=== PATIENT | male | born 1965 | race Caucasian/White ===

== ENCOUNTER 2019-10-07 10:13 | Inpatient (IN) ==
--- NOTE | 2019-10-01 09:00 | EKG Report ---
Test Performed on : 10/01/2019 08:38:49 AM Test Reason : pat Blood Pressure : / mmHG Vent. Rate : 086 BPM Atrial Rate : 089 BPM P-R Int : 000 ms QRS Dur : 134 ms QT Int : 360 ms P-R-T Axes : 000 043 160 degrees QTc Int : 430 ms Atrial fibrillation. with premature ventricular or aberrantly conducted complexes. Indeterminate axis Nonspecific intraventricular block Inferior infarct (cited on or before 19-FEB-2018) Cannot rule out Anterior infarct (cited on or before 19-FEB-2018) T wave abnormality, consider lateral ischemia Abnormal ECG When compared with ECG of 24-AUG-2019 12:46, (Unconfirmed) Lateral T wave abnormalities are more pronounced. Confirmed by Quan Herrera MD ([id number]) on 10/01/2019 8:15:40 PM
[2019-10-01 09:06] LABS: HEMATOCRIT 38.3 % (42.0-52.0); HEMOGLOBIN 12.3 g/dL (14.0-18.0); MCH 33.2 PG (27-31); MCHC 32.1 g/dL (33-37); MCV 103.5 FL (81-99); MPV 11.6 FL (7.4-10.4); RBC 3.7 XMIL (4.7-6.1); RDW 15.3 % (11.5-14.5); WBC 4.33 X1000 (4.8-10.8)
[2019-10-01 09:22] LABS: ESTIMATED GFR > 60
[2019-10-01 09:37] LABS: AGAP 11; BUN 35 mg/dL (8-22); CALCIUM 9.3 mg/dL (8.8-10.2); CHLORIDE 87 mmol/L (98-107); COSMO 265; CREATININE 0.9 mg/dL (0.7-1.2); GLUCOSE 95 mg/dL (70-104); POTASSIUM 4.9 mmol/L (3.5-5.1); SODIUM 128 mmol/L (136-145); TCO2 30 mmol/L (25-35)
[2019-10-07] MEDS ORDERED: LR 1,000 ML ONE (10:23)
[2019-10-07] MEDS ORDERED: VANCOMYCIN 1 GM/NS 1 GM/250 ML IVPB ONE (10:23)
[2019-10-07] MEDS ORDERED: NS 1,000 ML ONE ×2 (11:40→17:11)
[2019-10-07] MEDS ORDERED: MARCAINE 0.25% PF/EPI 1:200,000 ONE (11:40)
[2019-10-07] MEDS ORDERED: HEPARIN ONE (11:40)
[2019-10-07] MEDS ORDERED: KEFZOL ONE (11:40)
[2019-10-07] MEDS ORDERED: XYLOCAINE-MPF 2% ONE (11:45)
[2019-10-07] MEDS ORDERED: ROBINUL ONE ×2 (11:45→16:13)
[2019-10-07] MEDS ORDERED: DIPRIVAN 1% ONE (11:45)
[2019-10-07] MEDS ORDERED: ZEMURON ONE ×4 (11:45→14:17)
[2019-10-07] MEDS ORDERED: AMIDATE ONE (12:03)
[2019-10-07] MEDS ORDERED: QUELICIN (DOSE) ONE (12:03)
[2019-10-07] MEDS ORDERED: EPINEPHRINE ONE ×2 (12:41→14:48)
[2019-10-07] MEDS ORDERED: SODIUM CHLORIDE 0.9% 10 ML ONE (12:41)
[2019-10-07] MEDS ORDERED: HEPARIN (DOSE) ONE (12:59)
[2019-10-07] MEDS ORDERED: OFIRMEV 1000 MG/ISOTONIC SOLN 1,000 MG/100 ML BOTTLE ONE (13:00)
[2019-10-07] MEDS ORDERED: EPHEDRINE ONE (13:02)
[2019-10-07] MEDS ORDERED: ZOFRAN ONE (13:42)
[2019-10-07] MEDS ORDERED: BRIDION ONE (14:01)
[2019-10-07 15:17] LABS: URINE SOURCE CATH
[2019-10-07 15:25] LABS: BILIRUBIN URINE NEGATIVE (NEGATIVE); BLOOD URINE NEGATIVE (NEGATIVE); COLOR YELLOW; GLUCOSE URINE NEGATIVE (NEGATIVE); KETONE URINE NEGATIVE (NEGATIVE); LEUKOCYTES URINE NEGATIVE (NEGATIVE); NITRITE URINE NEGATIVE (NEGATIVE); PH URINE 6.5; PROTEIN URINE NEGATIVE (NEGATIVE); SP GRAVITY URINE 1.014; TURBIDITY URINE CLEAR (CLEAR); UROBILINOGEN URINE NORMAL (NORMAL)
[2019-10-07 15:26] LABS: UR EPITHELIAL CELLS <10 /HPF (<10); URINE BACTERIA NEGATIVE /HPF; URINE RBC <10 /HPF (<10); URINE WBC <10 /HPF (<10)
[2019-10-07] MEDS ORDERED: PITRESSIN ONE (15:53)
[2019-10-07] MEDS ORDERED: NEOSTIGMINE ONE (16:16)
[2019-10-07] MEDS ORDERED: BREVIBLOC ONE (16:27)
[2019-10-07] MEDS ORDERED: NEO-SYNEPHRINE 50 MG in NS 250 ML IV SCH (17:00)
[2019-10-07] MEDS: NORCO-10 ONE ×2 (17:26→18:27)
--- NOTE | 2019-10-07 17:39 | OPERATIVE NOTE ---
PROCEDURE DATE: 10/07/2019 PROCEDURE: 1. Femoral-femoral bypass. 2. Right femoral endarterectomy. 3. Right deep femoral to distal popliteal in situ vein bypass. SURGEON: Fermin Lane MD. CLOTH MERCERIZER BACK TENDER: Mynor Drew. PREOP DIAGNOSIS: 1. Severe peripheral vascular disease with rest pain in the right foot. 2. Right iliac occlusion. 3. Right superficial femoral artery occlusion. POSTOP DIAGNOSIS: 1. Severe peripheral vascular disease with rest pain in the right foot. 2. Right iliac occlusion. 3. Right superficial femoral artery occlusion. DESCRIPTION OF PROCEDURE: Satisfactory general endotracheal anesthesia was achieved. The left groin, right groin and right leg were prepped and draped in a sterile fashion. An [place] drape was used. We made a vertical incision in the right groin, dissected down to the common femoral artery surrounded with an umbilical tape. It was very calcified. The deep femoral branched quickly and was surround with a large vessel loop. The SFA was surrounded with a vessel loop as well. We did not dissect out the vein as of yet. We then turned our attention the left side, made a vertical incision there and again dissected down to the common femoral artery. We were able to incise the inguinal ligament and expose the external iliac which did have enough soft wall in order to be our origin for a femoral-femoral bypass. 7000 units of heparin were given. After it circulated for 4 minutes we then clamped off the external iliac with a DeBakey clamp. The distal vessels were also clamped off with a DeBakey clamp. I made a vertical incision. We tunneled an 8 mm Hemashield collagen-impregnated graft from one groin to the other. We cut the arteriotomy to match the size of the bypass graft. We then used a 5-0 Prolene stitch to do the proximal anastomosis or the anastomosis in the left external iliac. Upon completion, we then clamped off the graft and restored flow and used some 5-0 Prolene simple stitches to achieve complete hemostasis of this left anastomosis. We then turned our attention to the right side. It became evident that we would have to endarterectomize the vessel in order to get any outflow to the deep femoral. So we clamped off the vessels, incised the calcified common femoral with the 11 blade and extended with the Blake scissors. We then had to use a [place] to free a segment out of the common femoral, remove a significant calcified plaque all the way to the bifurcation of the common femoral. This allowed us to get back bleeding from the deep femoral and it would admit a 4 probe into the deep femoral. We tacked 1 intima with a 7-0 Prolene. We then cut the graft to match the arteriotomy and we constructed this anastomosis with a 5-0 Prolene running stitch. Upon completion, we had to add some additional stitches to achieve complete hemostasis of the femoral anastomosis. We then dissected out the vein and marked it. The takeoff was identified. We then clamped the greater saphenous vein right at the femoral vein junction and transected it. We over sewed the stump with a 5-0 Prolene stitch beginning in a horizontal mattress followed by a running stitch. We looked at the open end of the vein and excised the valves there. Unfortunately though, the vein would not reach to the common femoral so we had no choice but to use one of the deep femoral branches as the takeoff of our bypass graft. It bifurcated early as I mentioned before so the more distal arterial branch is the one we used as an inflow vessel. We then occluded flow in the deep femoral, incised it with the 11 blade and extended with the Blake scissors and then under 2 -1/2 loupe magnification we constructed the anastomosis using a 6-0 Prolene stitch. Before finishing it we did pass the dilator through the orifice to the deep femoral and good antegrade flow was present. We finished the anastomosis and a pulse was noted in the proximal vein graft. We then turned our attention to the medial calf proximally and made a longitudinal incision into the popliteal space and identified the distal popliteal, dissected it out and surrounded with vessel loops proximally and distally. We then identified the vein in the anterior subcutaneous flap. We exposed it. We marked it so we would not twist it. We then chose a vein branch and passed our [place] valvulotome up to the proximal anastomosis. We then opened it and engaged the valves and did a couple of passes until we had good pulsatile flow in the distal vein graft. We then clipped off the branch. We made an incision in the distal medial thigh, exposed the vein there and marked it so we would not twist it. We then mobilized the vein distally ligating the branches and bring it back to its normal in situ position proximal to the knee and then tunneled it through the popliteal space so it would lay [id number] with the distal popliteal. Just prior to doing that we did pass a valvulotome one more time to lyse the more distal valves and again we had excellent pulsatile flow. We then clipped off the vein graft right at its most distal end before we tunneled it into the popliteal space. We then laid it [id number]. We clamped it off with a bulldog clamp then with a vessel loop occlusion of the distal popliteal and under 2 1/2 loupe magnification we incised the artery and extended with the Blake scissors and then cut the vein graft to match the arteriotomy and constructed the anastomosis between the vein and the artery using a 6-0 Prolene running stitch. As we neared completion we passed a 2, to 2-1/2 and 3 probe in the distal popliteal. We had good back bleeding. We had good flow through the vein graft. We finished the anastomosis and flow was established. We then went back to the proximal groin incision and dissected further distally and there was a branch off the vein that we ligated. Another branch in the mid thigh was cut down on and clipped. These were all the branches that we could identify by preoperative imaging. The stump of the proximal incision we actually made a small graftotomy and passed a 3 Christiano back up through the proximal anastomosis and then passed the dilator which was 3-1/2 through the proximal anastomosis to be certain and it was adequate inflow and it was. We ligated off that branch that we had used for access to the vein graft. We irrigated out the wounds with Kefzol-impregnated saline. We closed the left groin with 2 layers of 2-0 Polysorb. The right groin incision was 1st with 3-0 Polysorb pops and then 2-0 Polysorb running. The more distal incisions were 3-0 pops in the subcutaneous tissue and the most distal incision was 3-0 pops followed by a 2-0 Polysorb running. We used local anesthesia 0.25 Marcaine with epinephrine at each incision then closed each skin incision with dustin. Sterile dressings were applied. He tolerated it well, was given 2 units of blood. Estimated blood loss was 1000 mL. He was sent to the recovery room in stable condition. cc: Fermin Lane MD
[2019-10-07 18:09] LABS: HEMATOCRIT 35.6 % (42.0-52.0); HEMOGLOBIN 11.8 g/dL (14.0-18.0)
[2019-10-07 18:27] LABS: AGAP 9; BUN 27 mg/dL (8-22); CALCIUM 8.5 mg/dL (8.8-10.2); CHLORIDE 96 mmol/L (98-107); COSMO 269; CREATININE 0.7 mg/dL (0.7-1.2); ESTIMATED GFR > 60; GLUCOSE 146 mg/dL (70-104); MAGNESIUM 1.6 mg/dL (1.5-2.7); POTASSIUM 4.5 mmol/L (3.5-5.1); SODIUM 130 mmol/L (136-145); TCO2 25 mmol/L (25-35)
[2019-10-07] MEDS: DILAUDID IV PRN ×2 (19:33→23:29)
[2019-10-07 19:40] LABS: HEMATOCRIT 36.9 % (42.0-52.0)
[2019-10-07] MEDS: COREG PO SCH (20:08)
[2019-10-07] MEDS: LASIX PO SCH (20:09)
[2019-10-07] MEDS: ENTRESTO 24 MG-26 MG TABLET PO SCH (20:09)
[2019-10-07] MEDS: NS 1,000 ML IV SCH (20:14)
[2019-10-07] MEDS: PLAVIX PO SCH (20:14)
--- NOTE | 2019-10-07 20:54 | Extremity Venous Study ---
PROCEDURE NAME: Vein Mapping Right GSV - 10/07/2019 PROCEDURE: Right greater saphenous vein mapping. REFERRING PHYSICIANS: Domingo. EQUIPMENT OR MACHINERY CLEANER: Ana King RVT. INDICATIONS: Evaluate for femoral popliteal arterial bypass graft. FINDINGS: The right great saphenous vein was compressible throughout its length. In the thigh, the vein measured 4.9 to 7.5 mm. Within the right leg, the vein measured 3.3 to 4.3 mm. The branches were marked off the vein as it was imaged. INTERPRETATION: Satisfactory right great saphenous vein for arterial bypass grafting. cc: MD Fermin Jackson MD
[2019-10-07] MEDS: NORCO-10 PO PRN (21:45)
[2019-10-07] MEDS: NEO-SYNEPHRINE 50 MG in NS 250 ML IV SCH (21:46)
[2019-10-07] MEDS: VANCOMYCIN 1 GM/NS 1 GM/250 ML IVPB IV SCH (22:34)
[2019-10-08] MEDS: NORCO-10 PO PRN ×4 (01:26→20:08)
[2019-10-08] MEDS: DILAUDID IV PRN ×6 (02:38→22:15)
[2019-10-08] MEDS: NS 1,000 ML IV SCH ×2 (04:09→14:38)
[2019-10-08] MEDS: NEO-SYNEPHRINE 50 MG in NS 250 ML IV SCH ×5 (04:09→22:02)
[2019-10-08 07:34] LABS: BASO# 0.01 X1000 (0.0-0.2); BASO% 0.1 % (0.0-0.8); EOS# 0.03 X1000 (0.0-0.7); EOS% 0.4 % (0.0-10.0); HEMATOCRIT 36.5 % (42.0-52.0); HEMOGLOBIN 11.5 g/dL (14.0-18.0); LYMPH# 1.18 X1000 (1.2-3.4); LYMPH% 13.9 % (20.5-51.1); MCH 32.8 PG (27-31); MCHC 31.5 g/dL (33-37); MONO# 0.91 X1000 (0.11-0.59); MONO% 10.7 % (1.7-9.3); NEUT# 6.34 X1000 (1.4-6.5); NEUT% 74.9 % (42.2-75.2); PLT 134 X1000 (130-400); RBC 3.51 XMIL (4.7-6.1); RDW 17.1 % (11.5-14.5); WBC 8.47 X1000 (4.8-10.8)
[2019-10-08 07:52] LABS: AGAP 7; BUN 18 mg/dL (8-22); CALCIUM 8.8 mg/dL (8.8-10.2); CHLORIDE 100 mmol/L (98-107); COSMO 270; CREATININE 0.8 mg/dL (0.7-1.2); ESTIMATED GFR > 60; GLUCOSE 101 mg/dL (70-104); POTASSIUM 5.3 mmol/L (3.5-5.1); SODIUM 134 mmol/L (136-145); TCO2 27 mmol/L (25-35)
[2019-10-08] MEDS: ENTRESTO 24 MG-26 MG TABLET PO SCH ×2 (08:19→20:09)
[2019-10-08] MEDS: PLAVIX PO SCH (08:19)
[2019-10-08] MEDS: LASIX PO SCH ×2 (08:19→20:09)
[2019-10-08] MEDS: COREG PO SCH ×2 (08:19→20:09)
[2019-10-08] MEDS: ASPIRIN PO SCH (08:19)
[2019-10-08] MEDS: LANOXIN PO SCH (08:19)
[2019-10-08] MEDS ORDERED: HEPARIN ONE ×2 (09:04→09:05)
[2019-10-08] MEDS ORDERED: KEFZOL ONE (09:04)
[2019-10-08] MEDS ORDERED: NS 0 ML ONE (09:05)
[2019-10-08] MEDS ORDERED: NS 2,000 ML ONE (09:05)
[2019-10-08] MEDS ORDERED: NORCURON ONE (09:41)
[2019-10-08] MEDS ORDERED: QUELICIN (DOSE) ONE (09:41)
[2019-10-08] MEDS ORDERED: SODIUM CHLORIDE 0.9% 10 ML ONE (09:41)
[2019-10-08] MEDS ORDERED: AMIDATE ONE (09:44)
[2019-10-08] MEDS ORDERED: FENTANYL ONE (09:45)
[2019-10-08] MEDS ORDERED: MAGNESIUM SULFATE 2 GM/S.W.I. 2 GM/50 ML IVPB IV ONE (10:14)
[2019-10-08] MEDS: VANCOMYCIN 1 GM/NS 1 GM/250 ML IVPB IV SCH ×2 (10:45→22:51)
--- NOTE | 2019-10-08 10:46 | CARDIOLOGY CONSULTATION ---
DATE: 10/08/2019 HISTORY OF PRESENT ILLNESS: Cardiology was consulted. The patient had broad complex tachycardia, eight-beat, during surgery. The patient had a fem-fem bypass, right femoral endarterectomy, and right deep femoral and distal popliteal in situ vein bypass on 10/07/2019. Today, he is going to undergo thrombectomy on the right leg as well. The patient complains of pain in his right foot. He denies any chest pain. There are no palpitations. Exercise capacity is significantly limited. There is no orthopnea or shortness of breath at the present time. REVIEW OF SYSTEM: A 14-point review of systems was done. GI System: There is no history of nausea, vomiting, or diarrhea. The patient had melenic stool about 2 to 3 weeks back. Genitourinary System: There is no dysuria or hematuria. Respiratory System: There is no history of cough, expectoration, hemoptysis. There is no history of fevers or chills. Endocrine System: Stable. PAST MEDICAL HISTORY: Coronary artery disease, status post coronary artery bypass grafting. Ventricular tachycardia. Status post AICD placement. Systolic heart failure. History of pleural effusion. COPD. Paroxysmal atrial fibrillation. Hypertension. Hyperlipidemia. Tobacco abuse. Peripheral vascular disease. Alcohol abuse. He had upper GI endoscopy and colonoscopy in 2017, which revealed diverticulosis, colonic distention. Chronic erosive gastritis was noted as well with chronic gastritis. Gastroparesis syndrome. SOCIAL HISTORY: The patient smokes. History of alcohol abuse. The patient lives locally. FAMILY HISTORY: Heart disease. PAST SURGICAL HISTORY: Quadruple bypass. Pacemaker. Back surgery. PHYSICAL EXAMINATION: Vitals: Blood pressure was 110/60. Cardiac: First and second heart sounds were heard. There was no S3 gallop. Respiratory: Normal air entry. No crepitations or rhonchi. Abdomen: Soft. Extremities: Recent surgery on the right leg groin, and was cold to touch, with decreased pulses on the foot. HEENT: Atraumatic, normocephalic. Pupils were equal and reacting to light. DIAGNOSTIC DATA: Electrocardiogram revealed atrial fibrillation, aberrancy was noted. CURRENT MEDICATIONS: Solis-Synephrine drip. Aspirin. Coreg 6.25 b.i.d. Plavix 75 mg a day. Lanoxin 0.125 mg a day. Lasix 40 mg p.o. b.i.d. Dilaudid. Entresto. Vancomycin. ASSESSMENT AND PLAN: Mr. Christian Roger is a 54-year-old, gentleman, with history of coronary artery disease, coronary artery bypass grafting, systolic heart failure, peripheral vascular disease, and history of GI bleed. He is admitted and has undergone fem-fem bypass on the right leg with right femoral endarterectomy, with right fem to distal popliteal in situ vein bypass. He is going to undergo a thrombectomy today. From a cardiac standpoint given his atrial fibrillation and peripheral vascular disease with thrombectomy, which is going to be done today, would recommend heparin post operatively. As far as anticoagulation therapy is concerned, he has had GI bleed, however, he has not seen a manager strategic partnerships recently and the last time he had a GI workup was in 2017. He does have diverticulosis with gastritis. I suspect he may have GI bleeding as well. However, the risk of not anticoagulating him is higher so we will plan for heparin and subsequently Eliquis at a lower dose. We will check CBCs on a regular basis and get GI on board if required. His magnesium was 1.6. We will correct that. An eight-beat broad complex tachycardia was noted intraoperatively, that could be aberrancy of conduction as well. Regardless, he has an AICD. We will have that interrogated as well. Systolic heart failure. He is on Entresto and Coreg. We have not made any changes to his medication. Given his cardiac and vascular disease, we will also put him on lipid-lowering agents as well. Thank you for the consult. We will follow. cc: MD Fermin Medellin MD
[2019-10-08] MEDS ORDERED: NEO-SYNEPHRINE ONE ×2 (10:50→11:24)
[2019-10-08] MEDS ORDERED: HEPARIN (DOSE) ONE (10:53)
[2019-10-08] MEDS ORDERED: VENTOLIN HFA ONE (11:49)
[2019-10-08] MEDS ORDERED: RECOTHROM ONE (12:01)
--- NOTE | 2019-10-08 12:42 | OPERATIVE NOTE ---
PROCEDURE DATE: 10/08/2019 PROCEDURE: Thrombectomy femoral femoral bypass; Thrombectomy insitu vein bypass; Revision of vein bypass with 6 mm PTFE interposition graft between femfem graft and in situ vein bypass PREOPERATIVE DIAGNOSIS: Thrombosis, femorofemoral graft and vein bypass. POSTOPERATIVE DIAGNOSIS: Thrombosis, femorofemoral graft and vein bypass. INDICATIONS: This is a 54-year-old who is a day after a femorofemoral bypass and a femoral to distal popliteal in situ vein bypass. These grafts were clotted. He was brought back to the operating room for thrombectomy and possible revision. DESCRIPTION OF PROCEDURE: Satisfactory general endotracheal anesthesia was achieved. The lower abdomen, both groins, and the right leg were prepped and draped in a sterile fashion. We removed the dustin from the groin incision, exposing the right part of the femorofemoral graft and the beginning of the vein graft. Neither had a pulse. We then exposed the left groin as well. The proximal femorofemoral graft had a pulse in it. We gave the patient 7000 units of heparin. We then made a longitudinal graftotomy on the right in the right groin on the femorofemoral Hemashield graft. We could pass a 4 Christiano distally into the profunda and extracted some clot. This Christiano, however, would not go into the vein graft. It just went down the profunda branch. I made a longitudinal incision also in the proximal vein graft and we passed a 3 Christiano distally. We opened the distal incision in the calf and exposed the distal vein graft. We noted that the 3 Christiano went through the anastomosis into the [place] artery. We extracted the clot from the vein graft until we got no further clot and there was back-bleeding. We used a small bulldog to clamp that off distally. Again, we could not traverse from the vein graft to the deep femoral into the common femoral. This seemed to be too circuitous of a route. We passed a 3 and a 3.5 dilator into the profunda with good back-bleeding but it did not go into the vein graft. I felt it obvious that we could not depend on the deep femoral as our inflow and I chose at that point to get a 6 mm PTFE graft and jump from the femorofemoral graft down to the proximal vein graft using a 6 mm PTFE. At this point, we then turned our attention to the femorofemoral graft and passed a 4 Christiano over. We identified a small kink in the femorofemoral graft on the left side due to the wound closure. Once we straightened that out, we were able to extract clot from the left side and had excellent inflow. It had resolved the clot from our vein graft. We took the clot out of the femorofemoral graft. We dilated the deep femoral so that we would have outflow there, as well as through our new interposition graft to the vein graft. We then sewed the 6 mm PTFE graft to the Hemashield graft using a CV-5 Mckee suture and then used a CV-6 Mckee suture to sew it to the vein graft. Before completing that, we back-bled the vein graft and again flushed the femorofemoral graft into the interposition graft, had good antegrade flow. No clot was seen. We finished that and flow was established. This provided a good pulse within the vein graft all the way down to the distal anastomosis. Inspecting the distal anastomosis in the distal poplitea, there was some bleeding at the tip of the anastomosis and we placed a 6-0 Prolene stitch there to achieve satisfactory hemostasis. This bled again. We used Gelfoam and topical thrombin to achieve adequate hemostasis there. This appeared to be a needle hole. The anastomoses between the femorofemoral graft and the PTFE graft, and the PTFE graft to the vein graft appeared hemostatic. We irrigated the wounds out with Kefzol-impregnated saline. We then closed the left groin in two layers of 2-0 Polysorb, the right groin with two layers of 2-0 Polysorb. The skin was closed with dustin. The distal incision was closed with interrupted 3-0 Polysorb in the fascia and then a 2- 0 Polysorb running in the subcutaneous tissue. Sterile island dressings were applied. He tolerated it well. Estimated blood loss was about 1200 mL. He was given 2 units of blood in the case. He tolerated the procedure well and was sent to the ICU in stable condition. cc: Fermin Lane MD MTDD
[2019-10-08] MEDS ORDERED: LOPRESSOR IV SCH ×2 (12:45→13:12)
--- NOTE | 2019-10-08 12:57 | Diag Imaging Result Doc PS360 ---
EXAM: CHEST-PORTABLE INDICATION: central line placement TECHNIQUE: One view COMPARISON: 08/24/2019 FINDINGS: There is a newly placed right IJ line. The tip projects over the region of the upper SVC. There is interstitial thickening bilaterally suggesting at least mild interstitial edema. There is a loculated pleural fluid collection at the left lung base that is stable and there is adjacent atelectasis and fibrosis that is similar to the previous study. There is no evidence of pneumothorax. There is stable cardiomegaly. There are stable CABG changes. There is evidence of pulmonary venous congestion. The implanted defibrillator is in stable position. IMPRESSION: 1.Interval placement of right IJ line with no evidence of pneumothorax. 2.Pulmonary venous congestion and interstitial edema. 3.Stable loculated pleural effusion at the left lung base. Electronically signed by Richard Pressley 10/08/2019 12:55 PM
[2019-10-08] MEDS ORDERED: LOPRESSOR IV PRN (13:15)
[2019-10-08 14:26] LABS: HEMATOCRIT 34.7 % (42.0-52.0)
--- NOTE | 2019-10-08 16:27 | GENERAL SURGERY PROGRESS NOTE ---
DATE: 10/08/2019 SUBJECTIVE: He is doing generally well. OBJECTIVE: His heart rate is around 60 and irregular. Blood pressure is 117/66. He is awake and alert, taking liquids. He has a palpable graft pulse. His leg is warmer. LABORATORY DATA: Postoperative hemoglobin was 11. PLAN: The plan will be to start him on Lovenox tonight for anticoagulation. Since he is extubated, we will be able to resume his antiplatelet therapy. cc: Fermin Lane MD MTDD
[2019-10-08] MEDS ORDERED: NS 500 ML IV ONE (19:30)
[2019-10-08] MEDS: D5 NS 1,000 ML IV SCH (20:08)
[2019-10-08] MEDS: LOVENOX SUBQ SCH (20:09)
[2019-10-08] MEDS: LIPITOR PO SCH (20:09)
--- NOTE | 2019-10-08 22:10 | PULMONOLOGY CONSULTATION ---
DATE: 10/08/2019 REQUESTING PHYSICIAN: Dr. Fermin Lane. REASON FOR CONSULTATION: Respiratory failure. HISTORY OF PRESENT ILLNESS: Mr. Roger is a 54-year-old with severe peripheral vascular disease, ongoing tobacco use, coronary artery disease, COPD, who has developed resting pain in the right ankle with a nonhealing ulcer. [facility] attempts at stenting in [facility] were unsuccessful. The patient underwent a femoral-femoral bypass yesterday for right iliac occlusion and a right superficial femoral artery occlusion. He also underwent a right deep femoral to distal popliteal in situ vein bypass. He returned to the operating room today for a thrombectomy of the femoral-femoral bypass and a thrombectomy of the in situ bypass. He was intubated during the procedure but was successfully extubated. He reports he is having pain. He is currently on vasopressors. He did develop ventricular tachycardia during his surgical procedure and is being followed by Cardiology. PAST MEDICAL HISTORY: 1. Severe peripheral vascular disease as per above. 2. Chronic left-sided pleural effusion. 3. Coronary artery disease. 4. Nicotine addiction with ongoing tobacco use. 5. Chronic obstructive pulmonary disease. 6. History of a gastric mass which was determined to be benign. 7. Dyslipidemia. 8. Alcohol use. 9. Gastroparesis. SOCIAL HISTORY: The patient continues to smoke. Amount of alcohol use was not queried. REVIEW OF SYSTEMS: Notable for generalized weakness, pain in both lower extremities, right greater than left. PHYSICAL EXAMINATION: General: Reveals a chronically ill-appearing male who appears much older than his stated age of 54. The patient does have some peripheral vascular disease with cyanosis of the feet and the hands. The patient is currently on vasopressors. Vital Signs: Blood pressure 101/67, heart rate 85, respiratory rate 12, oxygen saturation 97%. HEENT: Pupils are equal and reactive. Oropharynx appears clear. Neck: Supple. Chest: Reveals prolonged expiratory phase. Cardiac Exam: S1-S2. Abdomen: Soft. Diminished bowel sounds. Extremities: Reveal peripheral cyanosis. LABORATORIES: Chest x-ray reveals right internal jugular vein placement with pulmonary congestion and interstitial edema with chronic loculated pleural effusion. White blood count 8.47, hemoglobin 11.1, platelet count 134,000. Sodium 134, potassium 5.3, chloride 100, bicarbonate 27, BUN 18, creatinine 0.8. White blood count 8.47, hemoglobin 11.5, platelet count 134,000. IMPRESSION: A 54-year-old with: 1. Severe peripheral vascular disease. 2. Hypoxemic respiratory failure. 3. Hypotension/shock requiring Solis-Synephrine. 4. Coronary artery disease. 5. Ventricular tachycardia. PLAN: 1. Continue vasopressors. 2. Initiate fluid bolus to see if this will improve his blood pressure. 3. Check cortisol level. 4. Continue heparin per Dr. Fermin Lane. 5. Continue oxygen for hypoxemic respiratory failure. 6. Overall prognosis is guarded. cc: MD Fermin Patel MD
[2019-10-09] MEDS: NEO-SYNEPHRINE 50 MG in NS 250 ML IV SCH ×8 (00:39→20:44)
[2019-10-09] MEDS: NORCO-10 PO PRN ×3 (03:07→16:50)
[2019-10-09 04:37] LABS: ALLEN TEST YES; BE -5.4 mmoll (-3.0-3.0); BLOOD TYPE ARTERIAL; HCO3-(ACT) 20.7 mmoll (20.0-26.0); METHB 0.8 % (0.0-1.5); O2(CT) 14.2 mL/dL (15.0-23.0); O2HB 94.7 % (95.0-99.0); PCO2(98.6) 42 mmHg (35-45); PO2(98.6) 94 mmHg (60-100); SAMPLE BLOOD; SAO2 99.2 % (95.0-100.0); THB 10.6 g/dL (11.5-17.4)
[2019-10-09 04:39] LABS: MODALITY CANNULA
[2019-10-09] MEDS: D5 NS 1,000 ML IV SCH ×2 (05:37→16:42)
[2019-10-09 06:45] LABS: HEMATOCRIT 31.6 % (42.0-52.0); HEMOGLOBIN 9.9 g/dL (14.0-18.0); MCH 31.6 PG (27-31); MCHC 31.3 g/dL (33-37); RBC 3.13 XMIL (4.7-6.1); RDW 18.4 % (11.5-14.5); WBC 10.84 X1000 (4.8-10.8)
[2019-10-09 07:05] LABS: AGAP 8; ALB/GLOB RATIO 1.2; ALBUMIN 2.7 g/dL (3.5-5.0); ALKALINE PHOSPHATASE 73 U/L (32-122); BUN 17 mg/dL (8-22); CALCIUM 8.4 mg/dL (8.8-10.2); CHLORIDE 102 mmol/L (98-107); CK TOTAL 87 U/L (24-204); COSMO 269; CREATININE 0.8 mg/dL (0.7-1.2); ESTIMATED GFR > 60; GLUCOSE 149 mg/dL (70-104); GOT 24 U/L (10-34); GPT 11 U/L (10-44); POTASSIUM 4.9 mmol/L (3.5-5.1); SODIUM 132 mmol/L (136-145); TCO2 22 mmol/L (25-35); TOTAL BILIRUBIN 1.34 mg/dL (0.20-1.00)
--- NOTE | 2019-10-09 07:38 | EKG Report ---
Test Performed on : 10/09/2019 06:37:12 AM Test Reason : afib Blood Pressure : / mmHG Vent. Rate : 081 BPM Atrial Rate : 288 BPM P-R Int : 000 ms QRS Dur : 122 ms QT Int : 338 ms P-R-T Axes : 000 -83 105 degrees QTc Int : 392 ms Atrial fibrillation. Left axis deviation Inferior infarct (cited on or before 19-FEB-2018) Anterior infarct (cited on or before 19-FEB-2018) ST & T wave abnormality, consider lateral ischemia Abnormal ECG When compared with ECG of 01-OCT-2019 08:38, QRS axis shifted left Confirmed by Quan Herrera MD ([id number]) on 10/09/2019 3:56:44 PM
--- NOTE | 2019-10-09 08:40 | Diag Imaging Result Doc PS360 ---
EXAM: CHEST-PORTABLE 10/09/2019 HISTORY: abnormal exam TECHNIQUE: AP portable at 0535 COMMENT: There is a large left pleural effusion. There is pleural thickening laterally on the left. There is cardiomegaly. There is interstitial pulmonary edema. These findings were all present on 10/08/2019. The pulmonary edema is worse than on 08/24/2019. IMPRESSION: Left pleural effusion and pulmonary edema. Pleural fibrosis on the left. Electronically signed by Ming Cameron 10/09/2019 8:38 AM
[2019-10-09] MEDS ORDERED: LANOXIN IV SCH (09:00)
[2019-10-09] MEDS: ENTRESTO 24 MG-26 MG TABLET PO SCH ×2 (09:14→20:45)
[2019-10-09] MEDS: LANOXIN PO SCH (09:14)
[2019-10-09] MEDS: PLAVIX PO SCH (09:14)
[2019-10-09] MEDS: ASPIRIN PO SCH (09:15)
[2019-10-09] MEDS: COREG PO SCH ×2 (09:15→20:45)
[2019-10-09] MEDS: LASIX PO SCH (09:15)
[2019-10-09] MEDS: LOVENOX SUBQ SCH ×2 (09:15→20:45)
[2019-10-09] MEDS: VANCOMYCIN 1 GM/NS 1 GM/250 ML IVPB IV SCH (12:04)
[2019-10-09] MEDS ORDERED: D5 NS 1,000 ML IV SCH (12:44)
--- NOTE | 2019-10-09 13:00 | GENERAL SURGERY PROGRESS NOTE ---
DATE: 10/09/2019 SUBJECTIVE: Mr. Roger has a heart rate of 86 irregular, blood pressure 128/63 on Solis-Synephrine. He has a palpable graft pulse. He has a good Doppler flow at the posterior tibial position. His right leg is warm. LABORATORY DATA: Reveals a white count of 10,000, hemoglobin of 9.9, hematocrit of 31.6. BUN is 17, creatinine is 0.8. PLAN: To tolerate a systolic between 100 and 110 so we can decrease his Solis-Synephrine. We will cut his IV rate somewhat. cc: Fermin Lane MD
[2019-10-09] MEDS: DILAUDID IV PRN ×2 (14:09→19:24)
--- NOTE | 2019-10-09 16:17 | EKG Report ---
Test Performed on : 10/09/2019 3:55:30 PM Test Reason : bradycardia Blood Pressure : / mmHG Vent. Rate : 077 BPM Atrial Rate : 071 BPM P-R Int : 000 ms QRS Dur : 126 ms QT Int : 360 ms P-R-T Axes : 000 -35 165 degrees QTc Int : 407 ms Atrial fibrillation. Left axis deviation Nonspecific intraventricular block Lateral infarct (cited on or before 19-FEB-2018) Inferior infarct (cited on or before 19-FEB-2018) Nonspecific ST and T wave abnormality Anterolateral leads Abnormal ECG When compared with ECG of 09-OCT-2019 06:37, No significant change was found Confirmed by Quan Herrera MD ([id number]) on 10/12/2019 5:06:14 PM
[2019-10-09] MEDS: LASIX IV SCH (16:42)
--- NOTE | 2019-10-09 19:10 | PULMONOLOGY PROGRESS NOTE ---
DATE: 10/09/2019 SUBJECTIVE: The patient reports his pain is a little better. OBJECTIVE: Vital Signs: The patient remains on Solis-Synephrine. Intake/output: He is approximately 10 L positive for his brief hospital stay. He has been afebrile for the last 24 hours. Blood pressure 121/60, heart rate 76, respiratory rate 18, oxygen saturation 100%. HEENT: Pupils are equal and reactive. Oropharynx appears clear. Neck: Supple. Chest: Prolonged expiratory phase with decreased breath sounds in left base. Cardiac: S1, S2. Abdomen: Soft. Extremities: Cool to the touch, but pulses can be Dopplered in the right foot. LABORATORIES: Arterial blood gas reveals a pH of 7.30, pCO2 of 40, pO2 of 94. Sodium 132, potassium 4.9, chloride 102, bicarbonate 22, BUN 17, creatinine 0.8, glucose 149, cortisol 19.1. Creatine kinase is normal at 87. Chest x-ray reveals stable pleural effusion on the left. Slightly increased pulmonary edema compared to 08/24/2019. IMPRESSION: A 54-year-old with: 1. Severe peripheral vascular disease, status post revascularization and second trip to the operating room for thrombectomy of 2 grafts. 2. Acute hypoxemic respiratory failure. 3. Ongoing hypotension. 4. Coronary artery disease. 5. Ventricular tachycardia earlier in his course. PLAN: 1. Continue intravenous fluids at current rate. 2. Attempt to wean vasopressors as tolerated. 3. Consider steroids; however, his cortisol is only marginally low. 4. Continue oxygen. 5. Guarded prognosis. cc: MD Fermin Patel MD
[2019-10-09] MEDS: LIPITOR PO SCH (20:45)
[2019-10-10] MEDS: NORCO-10 PO PRN ×3 (00:29→23:14)
[2019-10-10] MEDS: VANCOMYCIN 1 GM/NS 1 GM/250 ML IVPB IV SCH ×3 (00:30→22:31)
[2019-10-10] MEDS: NEO-SYNEPHRINE 50 MG in NS 250 ML IV SCH ×7 (01:39→23:14)
[2019-10-10] MEDS: DILAUDID IV PRN (02:02)
[2019-10-10] MEDS: LASIX IV SCH ×2 (04:17→16:28)
[2019-10-10 06:00] LABS: HEMATOCRIT 29.6 % (42.0-52.0); HEMOGLOBIN 9.5 g/dL (14.0-18.0); MCH 32.8 PG (27-31); MCHC 32.1 g/dL (33-37); MCV 102.1 FL (81-99); MPV 11.9 FL (7.4-10.4); RBC 2.9 XMIL (4.7-6.1); RDW 17.7 % (11.5-14.5); WBC 8.99 X1000 (4.8-10.8)
[2019-10-10 06:50] LABS: AGAP 7; BUN 15 mg/dL (8-22); CALCIUM 8.3 mg/dL (8.8-10.2); CHLORIDE 102 mmol/L (98-107); COSMO 265; CREATININE 0.8 mg/dL (0.7-1.2); ESTIMATED GFR > 60; GLUCOSE 117 mg/dL (70-104); POTASSIUM 4.1 mmol/L (3.5-5.1); SODIUM 131 mmol/L (136-145); TCO2 22 mmol/L (25-35)
--- NOTE | 2019-10-10 07:17 | Diag Imaging Result Doc PS360 ---
EXAM: CHEST-PORTABLE 10/10/2019 HISTORY: post op TECHNIQUE: AP portable at 0538 COMMENT: There is a right-sided internal jugular central venous catheter with its tip at the level of the confluence of the innominate veins. There continues to be volume loss in the left lung with elevation of the hemidiaphragm and platelike opacities in the base. There is interstitial opacity throughout the lower lung field on the right. There is a small amount of pleural fluid on the right and thickening versus fluid on the left. Compared to 10/09/2019 the pulmonary edema is slightly worse. IMPRESSION: Pulmonary edema and bilateral pleural effusions with atelectasis in the left base. Electronically signed by Ming Cameron 10/10/2019 7:15 AM
--- NOTE | 2019-10-10 07:19 | EKG Report ---
Test Performed on : 10/10/2019 07:03:34 AM Test Reason : afib Blood Pressure : / mmHG Vent. Rate : 083 BPM Atrial Rate : 075 BPM P-R Int : 000 ms QRS Dur : 120 ms QT Int : 358 ms P-R-T Axes : 000 -51 130 degrees QTc Int : 420 ms Atrial fibrillation. with premature ventricular or aberrantly conducted complexes. Left axis deviation Low voltage QRS Inferior infarct (cited on or before 19-FEB-2018) Anterolateral infarct (cited on or before 19-FEB-2018) Abnormal ECG When compared with ECG of 09-OCT-2019 15:55, (Unconfirmed) No significant change was found Confirmed by Quan Herrera MD ([id number]) on 10/12/2019 5:12:02 PM
[2019-10-10] MEDS: LANOXIN PO SCH (08:30)
[2019-10-10] MEDS: COREG PO SCH ×2 (08:30→20:21)
[2019-10-10] MEDS: ASPIRIN PO SCH (08:30)
[2019-10-10] MEDS: ENTRESTO 24 MG-26 MG TABLET PO SCH ×2 (08:31→20:21)
[2019-10-10] MEDS: PLAVIX PO SCH (08:31)
[2019-10-10] MEDS: LOVENOX SUBQ SCH ×2 (08:31→20:21)
--- NOTE | 2019-10-10 09:39 | GENERAL SURGERY PROGRESS NOTE ---
DATE: 10/10/2019 SUBJECTIVE: Mr. Roger is somnolent but arousable and answers questions appropriately. His heart rate is 75 and irregular, blood pressure is about 100 systolic on Solis-Synephrine. His chest x-ray showed a little volume excess. His respiratory rate is 17. His intake was 4565, output 2425. He is eating a little. LABORATORY: Reveals a white count of 8900, hemoglobin 9.5, hematocrit 30. Sodium 131, potassium 4.1, chloride 102, carbon dioxide 22, BUN 15, creatinine 0.8. He has a palpable graft pulse. His right leg is warm. His left leg is somewhat cool. He has good Doppler flow at the posterior tibial position of the right foot. PLAN: Stimulate his appetite. We will continue to try to wean him off the Solis-Synephrine. I will stop his Dilaudid. He can continue [place]. 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 cc: Fermin Lane MD
[2019-10-10] MEDS ORDERED: SSD CREAM TOP SCH (09:45)
[2019-10-10] MEDS: MEGACE LIQUID PO SCH (09:47)
[2019-10-10] MEDS: CLINIMIX E 4.25%-5% SOLUTION 1,000 ML IV SCH (09:47)
[2019-10-10] MEDS: DUONEB (A & A) INH SCH ×3 (15:35→23:43)
[2019-10-10] MEDS: D5 NS 1,000 ML IV SCH (16:28)
[2019-10-10] MEDS: ZOFRAN IV PRN (18:48)
--- NOTE | 2019-10-10 19:13 | PULMONOLOGY PROGRESS NOTE ---
DATE: 10/10/2019 SUBJECTIVE: The patient is sleeping, but arousable. He reports his legs hurt, but feel a little better. OBJECTIVE: Vital Signs: The patient remains on Solis-Synephrine. Urine output appears adequate. The patient has been afebrile for the last 24 hours. Blood pressure 124/55, heart rate 71, respiratory rate 23, oxygen saturation 99%. HEENT: Pupils are equal. Oropharynx appears clear. Neck: Supple. Chest: Good air entry bilaterally with minimal crackles in the lung bases. Cardiac: S1, S2. Abdomen: Soft. Extremities: Continue to demonstrate some cyanosis of the lower extremities. LABORATORIES: Chest x-ray reveals chronic effusion on the left with slight worsening of pulmonary edema. White blood count 8.99, hemoglobin 9.5, platelet count 123,000. Sodium 131, potassium 4.1, chloride 102, bicarbonate 22, BUN 15, creatinine 0.8. IMPRESSION: A 54-year-old with: 1. Severe peripheral vascular disease, status post revascularization x2 trips to the operating room. 2. Acute hypoxemic respiratory failure. 3. Hypotension. 4. Coronary artery disease. 5. Recent ventricular arrhythmia/tachycardia. PLAN: 1. Continue current fluid resuscitation, which has been reduced. 2. Encourage bronchial hygiene with incentive spirometry. 3. Continue vasopressors. 4. Continue oxygen. 5. Prognosis remains guarded. cc: MD Fermin Patel MD
[2019-10-10] MEDS: LIPITOR PO SCH (20:21)
[2019-10-11] MEDS: NEO-SYNEPHRINE 50 MG in NS 250 ML IV SCH ×3 (02:11→09:51)
[2019-10-11] MEDS: NORCO-10 PO PRN ×5 (03:02→21:49)
[2019-10-11] MEDS: LASIX IV SCH (03:02)
[2019-10-11] MEDS: DUONEB (A & A) INH SCH ×6 (03:52→23:55)
[2019-10-11] MEDS: CLINIMIX E 4.25%-5% SOLUTION 1,000 ML IV SCH (04:30)
[2019-10-11 06:10] LABS: HEMATOCRIT 28.2 % (42.0-52.0); HEMOGLOBIN 8.9 g/dL (14.0-18.0); MCHC 31.6 g/dL (33-37); MCV 101.4 FL (81-99); MPV 11.8 FL (7.4-10.4); RBC 2.78 XMIL (4.7-6.1); RDW 17.1 % (11.5-14.5); WBC 8.96 X1000 (4.8-10.8)
--- NOTE | 2019-10-11 06:11 | Diag Imaging Result Doc PS360 ---
EXAM: CHEST-PORTABLE HISTORY: abnormal exam TECHNIQUE: Single view COMPARISON: 10/10/2019 FINDINGS: No change in the right jugular line or left pacemaker. Heart is enlarged. There are sternal wires. Moderate-sized left pleural effusion with small right pleural effusion. There is basilar atelectasis and pulmonary edema. The overall appearance is similar to the prior exam. IMPRESSION: Stable chest Electronically signed by Gilberto Dolan 10/11/2019 6:09 AM
[2019-10-11 06:19] LABS: AGAP 8; BUN 17 mg/dL (8-22); CALCIUM 8.5 mg/dL (8.8-10.2); CHLORIDE 101 mmol/L (98-107); COSMO 269; CREATININE 0.8 mg/dL (0.7-1.2); ESTIMATED GFR > 60; GLUCOSE 115 mg/dL (70-104); MAGNESIUM 1.1 mg/dL (1.5-2.7); POTASSIUM 3.6 mmol/L (3.5-5.1); SODIUM 133 mmol/L (136-145); TCO2 24 mmol/L (25-35)
--- NOTE | 2019-10-11 06:59 | EKG Report ---
Test Performed on : 10/11/2019 06:27:13 AM Test Reason : afib Blood Pressure : / mmHG Vent. Rate : 081 BPM Atrial Rate : 093 BPM P-R Int : 000 ms QRS Dur : 138 ms QT Int : 354 ms P-R-T Axes : 000 -50 127 degrees QTc Int : 411 ms Atrial fibrillation. with premature ventricular or aberrantly conducted complexes. Left axis deviation Nonspecific intraventricular block Inferior infarct (cited on or before 19-FEB-2018) Anterolateral infarct (cited on or before 19-FEB-2018) Abnormal ECG When compared with ECG of 10-OCT-2019 07:03, (Unconfirmed) QRS duration has increased Confirmed by Quan Herrera MD ([id number]) on 10/12/2019 5:30:55 PM
[2019-10-11] MEDS: LANOXIN PO SCH (08:13)
[2019-10-11] MEDS: COREG PO SCH ×2 (08:21→20:01)
[2019-10-11] MEDS: MEGACE LIQUID PO SCH (08:21)
[2019-10-11] MEDS: PLAVIX PO SCH (08:21)
[2019-10-11] MEDS: ENTRESTO 24 MG-26 MG TABLET PO SCH ×2 (08:21→20:01)
[2019-10-11] MEDS: ASPIRIN PO SCH (08:21)
[2019-10-11] MEDS: LOVENOX SUBQ SCH ×2 (08:21→20:01)
[2019-10-11] MEDS: LASIX PO SCH ×2 (08:21→20:01)
--- NOTE | 2019-10-11 08:49 | GENERAL SURGERY PROGRESS NOTE ---
DATE: 10/11/2019 OBJECTIVE: This morning his heart rate is 75, blood pressure 125/60 on Solis-Synephrine. His respiratory rate is 18. Chest x-ray shows some increased volume. He is awake and alert. Intake yesterday of 4875; output 3125. He is not eating much. His graft to his right leg is open. He has a good posterior tibial Doppler flow. His right leg is warm, warmer than the left. White count 8900, hemoglobin 8.9, hematocrit 28, potassium 3.6, BUN is 17, creatinine 0.8. Magnesium level is down to 1.1 today. PLAN: The plan is to sit him up today. I will tolerate a systolic of 90 to wean his Solis- Synephrine off. He is to use Silvadene on his ankle. We will get magnesium supplementation as well. We are trying to stimulate his appetite. He is receiving Clinimix though, however has peripheral nutrition. cc: Fermin Lane MD
[2019-10-11] MEDS ORDERED: MAGNESIUM SULFATE 1 GM/D5W 1 GM/100 ML IVPB IV ONE (09:00)
[2019-10-11] MEDS: SSD CREAM TOP SCH (09:55)
[2019-10-11] MEDS: VANCOMYCIN 1 GM/NS 1 GM/250 ML IVPB IV SCH ×2 (12:26→23:27)
--- NOTE | 2019-10-11 13:16 | PULMONOLOGY PROGRESS NOTE ---
DATE: 10/11/2019 SUBJECTIVE: The patient was sleeping. He does arouse to his name being called. He states he feels somewhat better today. OBJECTIVE: Vital Signs: Blood pressure is 110/56, heart rate is 79, respirations are 16, temperature is 97.4 degrees tympanic with room air saturations 94% to 97%. HEENT: Atraumatic, normocephalic. Pupils are equal, round, and react to light. Mucous membranes are moist. Neck: Supple with trachea midline. Cardiovascular: Regular rate and rhythm. S1 and S2 appreciated. Pulmonary: Bibasilar crackles. Chest rises and falls symmetric with respiration. Chest wall is nontender to palpation. Gastrointestinal: Abdomen is soft, nontender, nondistended with bowel sounds in all 4 quadrants. Extremities: Continue with some cyanosis, bilateral legs are warm with right warmer than left. Dressings are intact. LABORATORIES: WBC is 8.9 with hemoglobin 8.9, hematocrit 28.2, and platelets of 176,000. Sodium 133, potassium 3.6, BUN 17, creatinine 0.8 with glucose 115. Chest x-ray reveals a moderate size left pleural effusion with a small right pleural effusion with basilar atelectasis similar to October 09 chest x-ray. IMPRESSION: A 54-year-old gentleman with: 1. Severe peripheral vascular disease status post revascularization x2 trips to the operating room. 2. Acute hypoxemic respiratory failure. 3. Hypotension. 4. Coronary artery disease. 5. Recent ventricular arrhythmias/tachycardia. PLAN: 1. Continue to encourage bronchial hygiene with incentive spirometer. 2. Continue with vasopressors. 3. Continue supplemental oxygen. 4. Prognosis remains guarded. Continue current antibiotic regimen Dictated by ALEX Gaytan for Dewayne Arenas MD cc: ALEX Gaytan MD [facility] Walker, MD [facility]
[2019-10-11] MEDS: D5 NS 1,000 ML IV SCH (16:13)
[2019-10-11] MEDS: LIPITOR PO SCH (20:01)
[2019-10-12] MEDS: CLINIMIX E 4.25%-5% SOLUTION 1,000 ML IV SCH ×2 (00:41→21:10)
[2019-10-12] MEDS: NORCO-10 PO PRN ×4 (03:02→21:09)
[2019-10-12] MEDS: DUONEB (A & A) INH SCH ×6 (03:40→23:27)
--- NOTE | 2019-10-12 06:52 | GENERAL SURGERY PROGRESS NOTE ---
DATE: 10/12/2019 SUBJECTIVE: Patient has been off the Solis-Synephrine, and the blood pressures remain above a MAP of 90. He is still in atrial fibrillation, but is rate controlled. He has perfusion noted to his right leg with a dopplerable posterior tibial which is stable. From a surgical point of view, he is off his Solis-Synephrine and seems to be doing okay. Thus, I think clinically we probably will be able to move him to the [facility] if a bed is available. cc: MD Fermin Escobar MD
[2019-10-12 07:00] LABS: EOS# 0.03 X1000 (0.0-0.7); EOS% 0.6 % (0.0-10.0); HEMATOCRIT 27.2 % (42.0-52.0); HEMOGLOBIN 8.6 g/dL (14.0-18.0); IMM GRAN# 0.02 X1000 (0.0-0.04); IMM GRAN% 0.4 % (0.0-0.5); LYMPH# 0.97 X1000 (1.2-3.4); MCH 31.7 PG (27-31); MCHC 31.6 g/dL (33-37); MCV 100.4 FL (81-99); MONO# 0.78 X1000 (0.11-0.59); MONO% 14.4 % (1.7-9.3); MPV 11.6 FL (7.4-10.4); NEUT% 66.6 % (42.2-75.2); PLT 172 X1000 (130-400); RBC 2.71 XMIL (4.7-6.1); RDW 16.1 % (11.5-14.5)
[2019-10-12 07:32] LABS: AGAP 9; BUN 17 mg/dL (8-22); CALCIUM 8.4 mg/dL (8.8-10.2); CHLORIDE 100 mmol/L (98-107); COSMO 271; CREATININE 0.8 mg/dL (0.7-1.2); ESTIMATED GFR > 60; GLUCOSE 91 mg/dL (70-104); MAGNESIUM 1.2 mg/dL (1.5-2.7); POTASSIUM 3.3 mmol/L (3.5-5.1); SODIUM 135 mmol/L (136-145); TCO2 26 mmol/L (25-35)
--- NOTE | 2019-10-12 07:58 | Diag Imaging Result Doc PS360 ---
EXAM: CHEST-PORTABLE INDICATION: abnormal exam TECHNIQUE: One view COMPARISON: 10/11/2019 FINDINGS: The right IJ line is in stable position. There is stable pulmonary edema and pulmonary venous congestion. Bilateral effusions, larger on the left with adjacent atelectasis are grossly unchanged. No new consolidation is identified. There is stable cardiomegaly. IMPRESSION: Stable chest. Electronically signed by Richard Pressley 10/12/2019 7:56 AM
[2019-10-12] MEDS: ENTRESTO 24 MG-26 MG TABLET PO SCH ×2 (08:06→21:09)
[2019-10-12] MEDS: PLAVIX PO SCH (08:06)
[2019-10-12] MEDS: COREG PO SCH ×2 (08:07→21:09)
[2019-10-12] MEDS: ASPIRIN PO SCH (08:07)
[2019-10-12] MEDS: LOVENOX SUBQ SCH ×2 (08:07→21:10)
[2019-10-12] MEDS: MEGACE LIQUID PO SCH (08:07)
[2019-10-12] MEDS: LASIX PO SCH ×2 (08:07→21:10)
[2019-10-12] MEDS: LANOXIN PO SCH (08:15)
[2019-10-12] MEDS: VANCOMYCIN 1 GM/NS 1 GM/250 ML IVPB IV SCH (11:28)
[2019-10-12] MEDS: SSD CREAM TOP SCH (11:28)
--- NOTE | 2019-10-12 13:49 | PULMONOLOGY PROGRESS NOTE ---
DATE: 10/12/2019 SUBJECTIVE: The patient is awake and alert. He is watching TV. He states he is having some generalized body pain, although pain medication is helping. OBJECTIVE: Vital Signs: Blood pressure is 121/46 with a heart rate of 76, respirations 18, temperature is 97.7 degrees axillary with O2 saturations that are 100% on 2 L nasal cannula. HEENT: Head is normocephalic, atraumatic. Pupils equal, round, react to light. Mucous membranes are moist. Neck: Supple. Trachea midline. Cardiovascular: Irregular rate and rhythm. S1 and S2 are appreciated. Pulmonary: Some crackles to the right base. Chest rises and fall symmetric respiration. Chest wall is nontender to palpation. Gastrointestinal: Abdomen is soft, nontender, nondistended with bowel sounds in all 4 quadrants. Extremities: Legs are warm. Dressings are dry and intact. LABS: WBC is 5.4 with hemoglobin 8.6, hematocrit 27.2, platelets 172,000. Sodium is 135, potassium 3.3, BUN 17, creatinine 0.8 with a glucose of 91. Chest x-ray revealed stable chest. No new consolidation. IMPRESSION: This is a 54-year-old gentleman with 1. Severe peripheral vascular disease status post revascularization x2 trips to the operating room. 2. Acute hypoxemic respiratory failure. 3. Hypotension resolved. He is off pressors. 4. Coronary artery disease. 5. Atrial fibrillation. PLAN: 1. Will continue to encourage bronchial hygiene and incentive spirometer. 2. Continue supplemental oxygen. 3. Continue bronchodilators. 4. Continue to discuss smoking cessation. Dictated by ALEX Gaytan for Dewayne Arenas MD cc: ALEX Gaytan MD [facility] Walker, MD [facility]
[2019-10-12] MEDS ORDERED: KLOR-CON PO ONE (16:00)
[2019-10-12] MEDS ORDERED: MAGNESIUM SULFATE 4 GM/S.W.I. 4 GM/100 ML IVPB IV ONE (16:00)
[2019-10-12] MEDS: D5 NS 1,000 ML IV SCH (19:59)
[2019-10-12] MEDS: LIPITOR PO SCH (21:09)
[2019-10-13] MEDS: VANCOMYCIN 1 GM/NS 1 GM/250 ML IVPB IV SCH ×3 (00:28→23:52)
[2019-10-13] MEDS: NORCO-10 PO PRN ×4 (01:30→21:38)
[2019-10-13] MEDS: DUONEB (A & A) INH SCH ×6 (04:54→23:15)
[2019-10-13 06:07] LABS: AGAP 10; BUN 16 mg/dL (8-22); CALCIUM 8.4 mg/dL (8.8-10.2); CHLORIDE 99 mmol/L (98-107); COSMO 271; CREATININE 0.7 mg/dL (0.7-1.2); ESTIMATED GFR > 60; GLUCOSE 94 mg/dL (70-104); MAGNESIUM 1.6 mg/dL (1.5-2.7); POTASSIUM 3.3 mmol/L (3.5-5.1); SODIUM 135 mmol/L (136-145); TCO2 26 mmol/L (25-35)
--- NOTE | 2019-10-13 07:05 | GENERAL SURGERY PROGRESS NOTE ---
DATE: 10/13/2019 Patient transferred out of the ICU to the [facility]. He seems to be doing about the same. He does have some swelling to multiple extremities. His right foot still has a Dopplerable signal at the posterior tibial and the dorsalis pedis. At this point, his foot appears to be viable. We will continue to monitor him. Again, he has been hemodynamically stable and his leg appears to be perfused. The bypass appears to be open. cc: MD Fermin Escobar MD [facility]
[2019-10-13] MEDS: LANOXIN PO SCH (08:48)
[2019-10-13] MEDS: MEGACE LIQUID PO SCH (08:48)
[2019-10-13] MEDS: PLAVIX PO SCH (08:48)
[2019-10-13] MEDS: ENTRESTO 24 MG-26 MG TABLET PO SCH ×2 (08:48→21:37)
[2019-10-13] MEDS: COREG PO SCH ×2 (08:48→21:37)
[2019-10-13] MEDS: LOVENOX SUBQ SCH ×2 (08:48→21:37)
[2019-10-13] MEDS: ASPIRIN PO SCH (08:48)
[2019-10-13] MEDS: LASIX PO SCH ×2 (08:48→21:37)
[2019-10-13] MEDS: SSD CREAM TOP SCH (09:10)
[2019-10-13] MEDS ORDERED: KLOR-CON PO ONE (13:29)
[2019-10-13] MEDS ORDERED: MAGNESIUM SULFATE 2 GM/S.W.I. 2 GM/50 ML IVPB IV ONE (13:29)
--- NOTE | 2019-10-13 17:15 | PULMONOLOGY PROGRESS NOTE ---
DATE: 10/13/2019 SUBJECTIVE: The patient is awake and alert. He is talking on the phone. He states he has no complaints. OBJECTIVE: Vital Signs: Blood pressure is 102/48, with a heart rate of 88, respirations 18, temperature is 98.5 degrees, and O2 saturations are 97% on 2 L nasal cannula. Cardiovascular: Irregularly irregular rate and rhythm. S1 and S2 are appreciated. Pulmonary: He has some crackles to the right base. They are a little less than yesterday. Chest rises and falls symmetrically with respiration. Chest wall is nontender to palpation. Gastrointestinal: Abdomen is soft, nontender, nondistended, with bowel sounds in all 4 quadrants. Neurologic: He is alert and oriented. Labs: Sodium 135, potassium 3.3, BUN 16, creatinine 0.7, with a glucose of 294. IMPRESSION: This is a 54-year-old gentleman with: 1. Severe peripheral vascular disease, status post revascularization x2 trips to the operating room. 2. Acute hypoxemic respiratory failure. 3. Recurrent ventricular arrhythmias/tachycardia. 4. Atrial fibrillation. PLAN: 1. We will continue to encourage bronchial hygiene and incentive spirometer. 2. Supplemental oxygen as needed. 3. Continue current antibiotic regimen Dictated by ALEX Gaytan for Dewayne Arenas MD cc: ALEX Gaytan MD [facility] Walker, MD [facility]
--- NOTE | 2019-10-13 17:30 | EKG Report ---
Test Performed on : 10/13/2019 06:16:17 AM Test Reason : A fib Blood Pressure : / mmHG Vent. Rate : 083 BPM Atrial Rate : 056 BPM P-R Int : 000 ms QRS Dur : 126 ms QT Int : 358 ms P-R-T Axes : 000 052 196 degrees QTc Int : 420 ms Atrial fibrillation. with a competing junctional pacemaker. Nonspecific intraventricular block Inferior infarct (cited on or before 19-FEB-2018) Anterolateral infarct (cited on or before 19-FEB-2018) Abnormal ECG When compared with ECG of 11-OCT-2019 06:27, QRS axis shifted right Nonspecific T wave abnormality, improved in Anterior leads Confirmed by Quan Herrera MD ([id number]) on 10/13/2019 6:06:51 PM
[2019-10-13] MEDS: CLINIMIX E 4.25%-5% SOLUTION 1,000 ML IV SCH (17:49)
[2019-10-13] MEDS: LIPITOR PO SCH (21:37)
[2019-10-13] MEDS: D5 NS 1,000 ML IV SCH (21:37)
[2019-10-13] MEDS: ZOFRAN IV PRN (23:49)
[2019-10-14] MEDS: NORCO-10 PO PRN ×4 (01:53→21:01)
[2019-10-14] MEDS: DUONEB (A & A) INH SCH ×6 (03:35→23:03)
[2019-10-14] MEDS: ZOFRAN IV PRN (05:09)
--- NOTE | 2019-10-14 07:59 | GENERAL SURGERY PROGRESS NOTE ---
DATE: 10/14/2019 SUBJECTIVE: Mr. Roger is awake and alert. He is afebrile. Heart rate is 82 and irregular, respiratory rate 17, blood pressure 109/68. He has a palpable graft pulse. His right leg is warm. The incisions look okay. His right lateral malleolar ulcer is improved somewhat. He says his left leg feels about like his right leg. He says he cannot move his left hand. It is somewhat swollen. His intake is 1705, output 3300. PLAN: The plan today will be to get a CT of his head in view of his inability to move his left hand. We need to get him up in a chair. We will have physical therapy assist with that, as well as function of his left hand. We will recheck his labs tomorrow. I think he will need rehab care, and will begin seeking a bed if possible. cc: Fermin Lane MD
[2019-10-14] MEDS: LOVENOX SUBQ SCH ×2 (09:28→21:02)
[2019-10-14] MEDS: COREG PO SCH (09:28)
[2019-10-14] MEDS: PERIDEX MT SCH ×2 (09:28→21:03)
[2019-10-14] MEDS: ENTRESTO 24 MG-26 MG TABLET PO SCH (09:28)
[2019-10-14] MEDS: PLAVIX PO SCH (09:28)
[2019-10-14] MEDS: LASIX PO SCH ×2 (09:28→21:01)
[2019-10-14] MEDS: ASPIRIN PO SCH (09:28)
[2019-10-14] MEDS: MEGACE LIQUID PO SCH (09:28)
[2019-10-14] MEDS: LANOXIN PO SCH (09:28)
[2019-10-14] MEDS: SANTYL OINT TOP SCH (09:40)
--- NOTE | 2019-10-14 11:35 | Diag Imaging Result Doc PS360 ---
EXAM: CT HEAD W/WO CONTRAST INDICATION: Cannot move left hand TECHNIQUE: This exam was performed using automated exposure control, adjustment of mA or kV according to patient size, and/or use of iterative reconstruction technique. COMPARISON: 06/10/2017 FINDINGS: There is patchy cortical and subcortical low-attenuation involving the right frontal lobe indicating infarct. It still appears largely chronic given that it was not present on the previous study. There is no definite acute infarct given the limited sensitivity of CT versus MRI. There is no discrete intracranial mass, mass effect, or intracranial hemorrhage. There is no evidence of abnormal intracranial enhancement. The surrounding soft tissues and bony structures are essentially unremarkable. IMPRESSION: Patchy low attenuation in the right frontal lobe as described indicating prior infarct. This appears to be chronic given that was not present on the previous study from 2016 given the limited sensitivity of CT versus MRI. Electronically signed by Richard Pressley 10/14/2019 11:32 AM
[2019-10-14] MEDS: VANCOMYCIN 1 GM/NS 1 GM/250 ML IVPB IV SCH ×2 (11:46→23:16)
[2019-10-14] MEDS: CLINIMIX E 4.25%-5% SOLUTION 1,000 ML IV SCH (15:48)
[2019-10-14] MEDS ORDERED: BENADRYL PO ONE (19:39)
[2019-10-14] MEDS: LIPITOR PO SCH (21:02)
--- NOTE | 2019-10-14 23:10 | PULMONOLOGY PROGRESS NOTE ---
DATE: 10/14/2019 SUBJECTIVE: The patient is awake and alert. His overall cyanosis has significantly improved over the last 3 days. The patient does report some weakness in his left upper extremity. He was unable to move it at all this morning, but he reports he can move it is some now. OBJECTIVE: Vital Signs: The patient as been afebrile for the last 24 hours. Blood pressure 96/43, heart rate 85, respiratory rate 15, oxygen saturation 97% on 2 L/minutes. HEENT: Pupils are equal and reactive. Oropharynx appears clear. Neck: Supple. Chest: Reveals prolonged expiratory phase. Cardiac exam: S1 and S2 with a regular rhythm. Abdomen: Soft. Extremities: Reveal 2+ edema in left upper extremities with generalized weakness, almost 0 to 1/5 weakness. LABORATORY: CT scan of the brain reveals low-attenuation area in the right frontal lobe consistent with prior infarct. IMPRESSION: 1. Severe peripheral vascular disease status post revascularization of right lower extremity. Overall color of that limb continues to improve. 2. Acute hypoxemic respiratory failure. 3. Left upper extremity weakness. 4. Coronary artery disease. 5. Atrial fibrillation. PLAN: 1. Continue current antibiotic regimen. 2. Continue to educate the patient about the importance of smoking cessation. 3. Continue supplemental bronchodilators. 4. Agree with Dr. Lane. This patient will need rehabilitation at the time of discharge. cc: MD Fermin Patel MD
[2019-10-15] MEDS: NORCO-10 PO PRN ×6 (00:57→23:39)
[2019-10-15] MEDS: ENTRESTO 24 MG-26 MG TABLET PO SCH ×3 (00:58→20:30)
[2019-10-15] MEDS: COREG PO SCH ×3 (00:58→20:30)
[2019-10-15] MEDS: DUONEB (A & A) INH SCH ×6 (03:39→23:15)
[2019-10-15] MEDS: ZOFRAN IV PRN (05:15)
[2019-10-15 06:33] LABS: EOS# 0.03 X1000 (0.0-0.7); EOS% 0.6 % (0.0-10.0); HEMATOCRIT 26.5 % (42.0-52.0); HEMOGLOBIN 8.2 g/dL (14.0-18.0); IMM GRAN# 0.03 X1000 (0.0-0.04); IMM GRAN% 0.6 % (0.0-0.5); LYMPH# 0.93 X1000 (1.2-3.4); LYMPH% 17.1 % (20.5-51.1); MCH 31.5 PG (27-31); MCHC 30.9 g/dL (33-37); MCV 101.9 FL (81-99); MONO# 1.03 X1000 (0.11-0.59); MONO% 18.9 % (1.7-9.3); MPV 11.3 FL (7.4-10.4); NEUT# 3.42 X1000 (1.4-6.5); NEUT% 62.8 % (42.2-75.2); PLT 203 X1000 (130-400); RDW 16.3 % (11.5-14.5); WBC 5.44 X1000 (4.8-10.8)
[2019-10-15 06:45] LABS: AGAP 8; BUN 19 mg/dL (8-22); CALCIUM 8.3 mg/dL (8.8-10.2); CHLORIDE 99 mmol/L (98-107); COSMO 273; CREATININE 0.8 mg/dL (0.7-1.2); ESTIMATED GFR > 60; GLUCOSE 103 mg/dL (70-104); MAGNESIUM 1.6 mg/dL (1.5-2.7); POTASSIUM 3.8 mmol/L (3.5-5.1); SODIUM 135 mmol/L (136-145); TCO2 28 mmol/L (25-35)
[2019-10-15] MEDS: LOVENOX SUBQ SCH ×2 (08:17→20:29)
[2019-10-15] MEDS: PERIDEX MT SCH ×2 (08:17→20:30)
[2019-10-15] MEDS: MEGACE LIQUID PO SCH (08:17)
[2019-10-15] MEDS: ASPIRIN PO SCH (08:17)
[2019-10-15] MEDS: PLAVIX PO SCH (08:17)
[2019-10-15] MEDS: LANOXIN PO SCH (08:18)
[2019-10-15] MEDS: LASIX PO SCH ×2 (08:18→20:35)
--- NOTE | 2019-10-15 11:02 | GENERAL SURGERY PROGRESS NOTE ---
DATE: 10/15/2019 Mr. Roger continues to have a warm leg with a palpable graft pulse. His wounds look okay. His p.o. intake remains poor. He is on Clinimix. Today, I am going to remove his [place]los catheter. He must get out of bed and we must start mobilizing him. We are awaiting rehab placement, if that is possible. His CT scan did not show any parietal infarct, just an old frontal infarct. He is squeezing with his left hand today. His left hand swelling is better today with the blood pressure cuff being off his left arm. cc: Fermin Lane MD
[2019-10-15] MEDS: VANCOMYCIN 1 GM/NS 1 GM/250 ML IVPB IV SCH ×2 (11:40→23:09)
[2019-10-15] MEDS: SANTYL OINT TOP SCH (11:40)
[2019-10-15] MEDS: CLINIMIX E 4.25%-5% SOLUTION 1,000 ML IV SCH (11:40)
--- NOTE | 2019-10-15 20:01 | PULMONOLOGY PROGRESS NOTE ---
DATE: 10/15/2019 SUBJECTIVE: The patient is arousable to alert. He reports he has had a good day. He does complain of scrotal swelling. OBJECTIVE: The patient has been afebrile for the last 24 hours. Blood pressure 100/59, heart rate 80, respiratory rate 16, oxygen saturation 100% on 3 L per nasal cannula. HEENT: Pupils are equal and reactive. Oropharynx appears clear. Neck is supple. Chest reveals crackles in the lung bases. Cardiac exam: S1, S2. Abdomen is soft. He has significant scrotal edema. Extremities reveal a dressing on the right foot. Both lower extremities are warm. IMPRESSION: A 54-year-old with: 1. Severe chronic obstructive pulmonary disease. 2. Nicotine addiction with ongoing tobacco use. 3. Acute hypoxemic respiratory failure. 4. Weakness. 5. Coronary artery disease. 6. Atrial fibrillation. 7. Scrotal edema. DISCUSSION: A 54-year-old with problems outlined above. The patient's blood pressure is marginal. He will not tolerate diuresis at this juncture. PLAN: 1. Continue bronchial hygiene. 2. Continue current antibiotic regimen. 3. Continue to encourage smoking cessation. cc: MD Fermin Patel MD
[2019-10-15] MEDS: LIPITOR PO SCH (20:30)
[2019-10-16] MEDS: DUONEB (A & A) INH SCH ×4 (04:00→15:40)
[2019-10-16] MEDS: NORCO-10 PO PRN ×2 (04:25→12:14)
[2019-10-16] MEDS: CLINIMIX E 4.25%-5% SOLUTION 1,000 ML IV SCH ×2 (04:25→05:43)
--- NOTE | 2019-10-16 07:35 | GENERAL SURGERY PROGRESS NOTE ---
DATE: 10/16/2019 SUBJECTIVE/OBJECTIVE: Mr. Roger is afebrile. Heart rate 84. Blood pressure 94/49. Intake yesterday was recorded as 2200, output 1400. He did sit up yesterday. Today he is has a palpable graft pulse. His right leg is warm. His left leg is acceptable. PLAN: The plan will be to check his oxygen saturation on room air. We will also get a chest x- ray this morning. A bed is now available at rehab. We will decide about when he can go. cc: Fermin Lane MD
--- NOTE | 2019-10-16 08:02 | Diag Imaging Result Doc PS360 ---
CHEST-PORTABLE - 10/16/2019 INDICATION: sob COMPARISON: 10/12/2019 FINDINGS: Stable right central line. Stable cardiomegaly and pulmonary vascular congestion. Stable extensive scarring at the left lung base. There is a small right pleural effusion. No dense infiltrates. IMPRESSION: No change from prior. Electronically signed by Tony Crane 10/16/2019 8:00 AM
[2019-10-16] MEDS: LANOXIN PO SCH (08:26)
[2019-10-16] MEDS: LOVENOX SUBQ SCH (08:32)
[2019-10-16] MEDS: ASPIRIN PO SCH (08:32)
[2019-10-16] MEDS: COREG PO SCH (08:32)
[2019-10-16] MEDS: LASIX PO SCH (08:32)
[2019-10-16] MEDS: MEGACE LIQUID PO SCH (08:32)
[2019-10-16] MEDS: PLAVIX PO SCH (08:32)
[2019-10-16] MEDS: PERIDEX MT SCH (08:33)
[2019-10-16] MEDS: ENTRESTO 24 MG-26 MG TABLET PO SCH (08:34)
[2019-10-16] MEDS: SANTYL OINT TOP SCH (11:08)
[2019-10-16] MEDS: VANCOMYCIN 1 GM/NS 1 GM/250 ML IVPB IV SCH (11:22)
[2019-10-16 12:42] VITALS: BP 81/44
--- NOTE | 2019-10-16 13:41 | DISCHARGE SUMMARY ---
ADMISSION DATE: 10/07/2019 DISCHARGE DATE: 10/16/2019 PRIMARY DISCHARGE DIAGNOSIS: Ischemic rest pain in the right lower extremity with ulceration of the right lateral malleolus. OTHER DIAGNOSES: 1. Chronic atrial fibrillation. 2. Ischemic heart disease. 3. History of ventricular tachycardia. 4. History of systolic heart failure. 5. Chronic obstructive pulmonary disease. 6. Paroxysmal atrial fibrillation is chronic. 7. History of tobacco abuse. 8. History of diverticulosis, 9. Gastroparesis. PROCEDURES INCLUDE: 1. Femoral-femoral bypass. 2. Right femoral endarterectomy. 3. Right deep femoral to distal popliteal in situ vein bypass on 10/06. 4. Thrombectomy of the femoral-femoral bypass and a thrombectomy in the in situ vein bypass with revision of the vein bypass with a 6 mm PTFE interposition graft between the fem-fem graft and the in situ vein bypass on 10/07. CONSULTATION: Accomplished with: 1. Dr. Seymour of Cardiology. 2. Dr. Arenas of Pulmonology. HOSPITAL COURSE: Following Mr. Roger's admission on the , he underwent the above-noted procedure. He was maintained on Solis-Synephrine postop to maintain his blood pressure. He was found to have a thrombosed graft. In the first 24 hours, was taken back to the operating room on the , underwent the secondly noted procedure, that being a thrombectomy of the fem-fem bypass and the in situ vein bypass. We had to revise the bypass with an interposition graft. Subsequent to that, he was maintained on aspirin, Plavix and therapeutic Lovenox. This maintained patency of his bypass graft and it remained patent throughout the rest of his hospitalization. He did receive some transfusions due to some blood loss anemia during the hospitalization. Due to his cardiac history, Cardiology was consulted. He does have a history of ventricular tachycardia and has an AICD defibrillator in place. He was maintained on his digoxin and Coreg, but also received metoprolol to keep his rate acceptable. Due to his lung disease, Dr. Arenas was consulted and saw him regarding his pulmonary disease. We were able to maintain adequate pulmonary toilet. He did not require prolonged intubation after his operative interventions. He was maintained on vancomycin IV for his ankle ulcer protective for his prosthetic graft and for his lungs. His appetite was poor during the hospitalization. We gave him Megace in order to help stimulate his appetite. He was given peripheral nutrition with Clinimix. Physical therapy assisted in getting him up and in a chair. By October 15, it was felt that he had exhausted benefit from in-hospital care, and it was felt he could be transferred to rehabilitation. He certainly was not a candidate to go home at this point due to his medical problems, and the fact that he is only at home with his mother. So, we have arranged for him to go to [facility] for further convalescence and rehabilitation. His medications are listed. He will return to see me in the office in 3 weeks, or whenever he finishes his care at the rehab. His dustin should come out in 2 weeks. We will discharge him on Eliquis and aspirin. We will stop his Plavix in view of the fact that he is on Eliquis, and certainly we have stopped his therapeutic Lovenox upon discharge. cc: Fermin Lane MD
[2019-10-16] MEDS ORDERED: ELIQUIS PO SCH (21:00)
== END 2019-10-16 16:11 | disposition swing bed (61) | DRG 252 ==
LOC: SURHOLD 10:13 → ICU 13:00 → 2N 10-12 09:48
PROVIDERS: ADMIT Surgery; ATTEND Surgery